=== PATIENT | female | born 1960 | race Caucasian/White ===

== ENCOUNTER 2024-01-23 08:59 | Outpatient (AMB) | payer OTHER, SELFPAY ==
--- NOTE | 2024-01-23 09:11 | A.OFFPC_ITS ---
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 Past medical history includes type 2 diabetes hyperlipidemia and hypertension. Patient had last visit was a previous doctor in June. She has not been checking her blood glucose readings at home. Patient denies hypoglycemia episodes PFSH Surgical History Hx of tubal ligation History of left oophorectomy Hx of appendectomy Family History Father Hypertension Mother Dementia Sister COPD (chronic obstructive pulmonary disease) Social History (Updated 01/23/24 @ 10:11 by Shakira Duarte MD) Household Members Other:: , retired, 2 sons, Housing: House Patient Tobacco Use Status: Never used Tobacco e-Cigarette/Vaping Use: Never Used Current occupational status: retired Cognitive needs: No Hearing needs: No Vision needs: Yes Questionnaire PHQ-9 Over the last 2 weeks, how often have you been bothered by any of the following problems? 1. Little interest or pleasure in doing things: not at all 2. Feeling down, depressed, or hopeless: not at all 3. Trouble falling or staying asleep, or sleeping too much: several days 4. Feeling tired or having little energy: several days 5. Poor appetite or overeating: several days 6. Feeling bad about yourself - or that you are a failure or have let yourself or your family down: not at all 7. Trouble concentrating on things, such as reading the newspaper or watching television: not at all 8. Moving or speaking so slowly that other people could have noticed. Or the opposite - being so fidgety or restless that you have been moving around a lot more than usual: not at all 9. Thoughts that you would be better off or of hurting yourself in some way: not at all Total score: 3 Depression Screening Interpretation: Negative Depression Screening Done: Yes Source: Developed by Drs. Jasson Peterson, Joan Daugherty, Agustín Acosta and colleagues, with an educational matt from [employer]. Thrive Questionnaire Date Thrive assessed: 01/23/24 I am a: Patient What is your living situation today?: I have a steady place to live Within the past 12 months, did the food you bought not last and you didn't have the money to get more?: Never true Within the past 12 months, did you worry whether your food would run out before you got money to buy more?: Never true Do you have trouble paying for medicines?: No Do you have trouble getting transportation to medical appointments?: No Do you have trouble paying your heating and electricity bill?: No Do you have trouble taking care of your child, family member or friend?: No Do you have trouble with day-to-day activities such as bathing, preparing meals, shopping, managing finances, etc.?: No Are you currently unemployed and looking for a job?: No Are you interested in more education?: No Please select the resources that you would like help with: None Currently or been in a relationship where the following occur: no concerns reported THRIVE Score: 0 AUDIT C Alcohol Use Questionnaire (AUDIT-C) 1. How often do you have a drink containing alcohol?: Monthly or less 2. How many drinks containing alcohol do you have on a typical day when you are drinking?: 1 or 2 3. How often do you have six or more drinks on one occasion?: Never Total Score: 1 SO-7 AMB Questionnaire SO-7 Date SO - 7 assessed: 01/23/24 Feeling nervous, anxious, or on edge: 0 = Not at all Not being able to stop or control worryin = Not at all Worrying too much about different things: 0 = Not at all Trouble relaxin = Not at all Being so restless that it is hard to sit still: 0 = Not at all Becoming easily annoyed or irritable: 0 = Not at all Feeling afraid as if something awful might happen: 0 = Not at all Total SO-7 score (0-4 normal; 5-9 mild; 10-14 moderate; 15-21 severe): 0 Source: Developed by Drs. Jasson Peterson, Joan Daugherty, Agustín Acosta and colleagues, with an educational matt from [employer]. Review of Systems Const All systems reviewed & are unremarkable except as noted in HPI and below Reports no additional complaints Eyes Reports no additional complaints ENT Reports no additional complaints Card Reports no additional complaints Resp Reports no additional complaints GI Reports no additional complaints Reports no additional complaints Physical exam (Primary Care) Vital Signs: Last Vital Signs Pulse 100 01/23/24 09:12 BP 130/76 01/23/24 09:12 Pulse Ox 97 01/23/24 09:12 Oxygen Delivery Method Room Air 01/23/24 09:12 BMI result Body Mass Index 29.3 Tobacco/Smoking Status: Tobacco use Status Tobacco use date assessed 01/23/24 01/23/24 09:28 Patient Tobacco Use Status Never used Tobacco 01/23/24 10:11 e-Cigarette/Vaping Use Never Used 01/23/24 10:11 PHQ-9: PHQ-9 Score PHQ-9: Total score 3 01/23/24 09:48 Depression Screening Interpretation: Negative Thrive Assessment: Date of Thrive Assessment Date Thrive assessed 01/23/24 01/23/24 09:28 Currently or been in a relationship where the following occur: no concerns reported Const General: no acute distress HENMT Head: Yes normal to inspection Ears: hearing grossly normal bilaterally Throat: Yes posterior oropharynx normal Eyes General: appearance normal, both eyes and all related structures Neck Neck: Yes supple Resp Effort & Inspection: normal respiratory effort Auscultation: clear to auscultation bilaterally Cardio Rhythm: regular rhythm Heart sounds: S1 normal heart sound present and S2 normal heart sound present GI Inspection: Yes normal to inspection Palpation (GI): Soft to palpation Percussion: Yes normal to percussion Auscultation: normal bowel sounds Extrem Other: Diabetic foot exam skin is intact monofilament and vibration sensation intact bilaterally General: Yes no clubbing, cyanosis or edema Assessment and Plan Assessment & Plan (1) DM type 2 (diabetes mellitus, type 2): Comment: X 12 yrs Code(s): E11.9 - Type 2 diabetes mellitus without complications Plan: ADA diet regular physical activity discussed with the patient. Patient will start Mounjaro because Ozempic is not covered by her current insurance. She will return for fasting labs including A1c next week and in 3 months (2) Hyperlipidemia: Code(s): E78.5 - Hyperlipidemia, unspecified Plan: Continue statin (3) HTN (hypertension): Code(s): I10 - Essential (primary) hypertension Plan: Continue Lisinopril (4) Hx of colonoscopy: Comment: negative >10 yrs Code(s): Z98.890 - Other specified postprocedural states Plan: Referred to GI for colonoscopy (5) Hx of mammogram: Comment: [facility] 2022 Code(s): Z92.89 - Personal history of other medical treatment Plan: Obtain records from [facility] (6) Normal pelvic exam: Comment: >10 yrs, declined 01/19 Code(s): Z01.419 - Encounter for gynecological examination (general) (routine) without abnormal findings Orders: Orders Comprehensive [place]. Panel Fast Today E11.9 - Type 2 diabetes mellitus without complications, E78.5 - Hyperlipidemia, unspecified, I10 - Essential (primary) h ypertension, Z01.419 - Encounter for gynecological examination (general) (routine) without abnormal findings, Z92.89 - Personal history of other medical treatment, Z98.890 - Other specified postprocedural states TSH reflex Free T4 Today E11.9 - Type 2 diabetes mellitus without complications, E78.5 - Hyperlipidemia, unspecified, I10 - Essential (primary) hypertension, Z01 .419 - Encounter for gynecological examination (general) (routine) without abnormal findings, Z92.89 - Personal history of other medical treatment, Z98.890 - Other specified postprocedural states Comprehensive [place]. Panel Fast 3 Months E11.9 - Type 2 diabetes mellitus without complications, E78.5 - Hyperlipidemia, unspecified, I10 - Essential (primary) hypertension Microalbumin, Random (w Creat) 3 Months E11.9 - Type 2 diabetes mellitus without complications, E78.5 - Hyperlipidemia, unspecified, I10 - Essential (primary) hypertension Complete Blood Count Auto Diff Today E11.9 - Type 2 diabetes mellitus without complications, E78.5 - Hyperlipidemia, unspecified, I10 - Essential (primary) hypertension, Z01.419 - Encounter for gynecological examination (general) (routine) without abnormal findings, Z92.89 - Personal history of other medical treatment, Z98.890 - Other specified postprocedural states Lipid Panel Today E11.9 - Type 2 diabetes mellitus without complications, E78.5 - Hyperlipidemia, unspecified, I10 - Essential (primary) hypertension, Z01.419 - Encounter for gynecological examination (general) (routine) without abnormal findings, Z92.89 - Personal history of other medical treatment, Z98.890 - Other specified postprocedural states Hemoglobin A1c Today E11.9 - Type 2 diabetes mellitus without complications, E78.5 - Hyperlipidemia, unspecified, I10 - Essential (primary) hypertension, Z01.419 - Encounter for gynecological examination (general) (routine) without abnormal findings, Z92.89 - Personal history of other medical treatment, Z98.890 - Other specified postprocedural states Microalbumin, Random (w Creat) Today E11.9 - Type 2 diabetes mellitus without complications, E78.5 - Hyperlipidemia, unspecified, I10 - Essential (primary) hypertension, Z01.419 - Encounter for gynecological examination (general) (routine) without abnormal findings, Z92.89 - Personal history of other medical treatment, Z98.890 - Other specified postprocedural states Hemoglobin A1c 3 Months E11.9 - Type 2 diabetes mellitus without complications, E78.5 - Hyperlipidemia, unspecified, I10 - Essential (primary) hypertension Lipid Panel 3 Months E11.9 - Type 2 diabetes mellitus without complications, E78.5 - Hyperlipidemia, unspecified, I10 - Essential (primary) hypertension Referrals Gastroenterology Referral Z00.00 - Encounter for general adult medical examination without abnormal findings Medications: New tirzepatide (Mounjaro) 2.5 mg (0.5 mL) subcut QWEEK 6 mL 0RF 4 weeks metformin 1,000 mg PO DAILY 90 tabs 3RF lisinopril 20 mg PO DAILY 90 tabs 3RF pravastatin 40 mg PO BEDTIME 90 tabs 3RF Coding Level of Care Code New Pt Level 4 (74770) Diagnoses DM type 2 (diabetes mellitus, type 2) E11.9 Hyperlipidemia E78.5 HTN (hypertension) I10 Hx of colonoscopy Z98.890 Hx of mammogram Z92.89 Normal pelvic exam Z01.419
[2024-01-23 09:12] VITALS: BP 130/76; PULSE 100; O2SAT 97; BMI 29.3
== END 2024-01-23 10:15 | disposition home or self-care (01) ==
PROVIDERS: PCP Internal Medicine; Visit Provider Internal Medicine
DX: E11.9 Type 2 diabetes mellitus without complications (principal); E78.5 Hyperlipidemia, unspecified; I10 Essential (primary) hypertension; Z98.890 Other specified postprocedural states; Z92.89 Personal history of other medical treatment; Z01.419 Encounter for gynecological examination (general) (routine) without abnormal findings
CPT/HCPCS: 99204

== ENCOUNTER 2024-02-05 09:58 | Outpatient (REF) | payer OTHER, SELFPAY ==
[2024-02-05 13:20] LABS: MANUAL DIFF FLAG NO
[2024-02-05 13:30] LABS: Basophils Percent Auto 0.5 % (0-2); Eosinophils Percent Auto 0.7 % (0-4); Hematocrit 38.8 % (37.0-47.0); Hemoglobin 13.1 g/dl (12.0-16.0); Imm Gran Abs Auto 0.01 X10*3/uL (0.00-0.03); Imm Gran Pct Auto 0.2 % (0.0-0.4); Lymphocytes Absolute Auto 1.1 X10*3/uL (1.2-4.9); Lymphocytes Percent Auto 20.1 % (20-40); Mean Corpuscular HGB Conc 33.8 g/dl (31.0-35.0); Mean Corpuscular Hemoglobin 31.2 pg (27.0-33.0); Mean Corpuscular Volume 92.4 fL (80.0-98.0); Mean Platelet Volume 9.6 fL (9.4-12.3); Monocytes Absolute Auto 0.4 X10*3/uL (0.1-1.2); Monocytes Percent Auto 6.4 % (2-11); Neutrophils Absolute Auto 4.1 x10*3/uL (2.0-8.3); Neutrophils Percent Auto 72.1 % (45-73); Platelet Count 268 X10*3/uL (160-400); Red Cell Distribution Width 12.3 % (11.0-16.0); White Blood Count 5.6 X10*3/uL (4.8-10.8)
[2024-02-05 13:48] LABS: Alanine Aminotransferase 70 U/L (0-31); Albumin Level 4.2 g/dL (3.5-5.0); Alkaline Phosphatase 90 U/L (39-117); Anion Gap 11 (12-20); Aspartate Amino Transferase 53 U/L (5-31); Bilirubin Total 0.6 mg/dL (0.0-1.0); Blood Urea Nitrogen 17 mg/dL (9-16); Calcium 9.6 mg/dL (8.4-10.2); Carbon Dioxide 26 mmol/L (22-29); Chloride 105 mmol/L (96-108); Cholesterol 163 mg/dL (<200); Estimated Glomerular Filt Rate > 60; Glucose Fasting 164 mg/dL (60-99); HDL Cholesterol 50 mg/dL (>40); LDL Cholesterol Calculated 91 mg/dL (<100); Sodium 137 mmol/L (135-145); Total Protein 7.3 g/dL (6.5-8.0); Triglycerides 111 mg/dL (<150)
[2024-02-05 14:07] LABS: TSH reflex Free T4 0.59 uIU/mL (0.32-4.0)
[2024-02-05 14:10] LABS: Estimated Average Glucose 143 mg/dL; Hemoglobin A1c % 6.6 % (<6.0)
[2024-02-05 14:17] LABS: Creatinine Urine 187.02 mg/dL; Microalbum/Creatinine Ratio Ur 6.4 ug/mg cr (<30)
== END 2024-02-05 09:59 | disposition home or self-care (01) ==
LOC: HO.HMGCLDS 09:58
PROVIDERS: PCP Internal Medicine; Visit Provider Internal Medicine
DX: E11.9 Type 2 diabetes mellitus without complications (principal); I10 Essential (primary) hypertension; E78.5 Hyperlipidemia, unspecified; Z98.890 Other specified postprocedural states; Z92.89 Personal history of other medical treatment
CPT/HCPCS: 36415; 80053; 80061; 82043; 82570; 83036; 84443; 85025

== ENCOUNTER 2024-03-25 13:52 | Outpatient (AMB) | payer OTHER, SELFPAY ==
--- NOTE | 2024-03-25 13:59 | MHC.OFFVIS ---
Vital Signs 03/25/24 14:09 Height 5 ft 6.75 in Weight 185 lb 10.067 oz BMI 29.3 BP 122/62 Blood Pressure Location Lt brachial Position Sitting Pulse 75 Intake Visit Reasons: Colonoscopy Screening Intake Note: Jasmyne presents to in office visit today for colonoscopy screening. CC: Patient denies having any GI symptoms today. Last colonoscopy about 11 years ago at [facility] per patient it was normal. 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 She is referred by Shakira Duarte of [facility] primary care. PMX Hypertension High cholesterol Diabetes * SURGICAL HISTORY Colonoscopy-10 years ago Tubal ligation Left oophorectomy Appendectomy * ALLERGIES: NKDA * Violin Memory LABS: Laboratory Tests 02/05/24 10:02 WBC 5.6 Hgb 13.1 Hct 38.8 Plt Count 268 Estimated GFR > 60 Total Bilirubin 0.6 AST 53 H ALT 70 H Alkaline Phosphatase 90 TSH 0.59 TODAY'S VISIT This is her second colonoscopy. This was a negative study. No bowel or upper GI problems. No prior anesthesia or sedation problems. No respiratory or cardiac problems. No ID problems. Her sister had some colon polyps removed. [facility] Surgical History Hx of tubal ligation History of left oophorectomy Hx of appendectomy Family History Father Hypertension Mother Dementia Sister COPD (chronic obstructive pulmonary disease) Maternal Grandmother Breast cancer Social History Household Members Other:: , retired, 2 sons, Housing: House Patient Tobacco Use Status: Never used Tobacco e-Cigarette/Vaping Use: Never Used Current occupational status: retired Cognitive needs: No Hearing needs: No Vision needs: Yes Review of Systems Const Denies fatigue, Denies fever(s), Denies night sweats, Denies poor appetite and Denies weight loss Eyes Details: glasses Reports requires corrective lenses ENT Reports Normal hearing present, Denies dental pain, Denies dysphagia, Denies hearing loss, Denies mouth pain, Denies odynophagia, Denies throat swelling, Denies tongue swelling and Reports other (Dentition adequate) Card Reports no additional complaints Resp Reports no additional complaints GI Details: Denies abdominal pain, Denies melena, Denies bloating, Denies hematochezia, Denies constipation, Denies GI cramping, Denies dysphagia, Denies excessive flatus, Denies early satiety, Denies heartburn, Denies diarrhea, Denies nausea, Denies odynophagia, Denies vomiting and Denies hematemesis Skin/Breast Denies pruritus, Denies lesions, Denies rash and Denies jaundice Neuro Reports Normal hearing present and Denies Abnormal speech present Endo Denies fatigue Aller/Immun Denies throat swelling and Denies tongue swelling Physical Exam Vital Signs: Last Vital Signs Pulse 75 03/25/24 14:09 BP 122/62 03/25/24 14:09 BMI result Body Mass Index 29.3 Const General: cooperative, no acute distress, well developed and well groomed Nutritional Appearance: well nourished and overweight Orientation/consciousness: oriented to person, oriented to place and oriented to time Limitations: No language barrier HEENT Head: Yes normocephalic and Yes atraumatic Eyes General: appearance normal, both eyes and all related structures Pupils: Equal, round and reactive pupils present Neck Neck: Yes normal visual inspection and Yes no lymphadenopathy Thyroid: Thyroid normal Resp Effort & Inspection: normal respiratory effort and able to speak in complete sentences Auscultation: clear to auscultation bilaterally Cardio Rate: regular rate Rhythm: regular rhythm Heart sounds: Normal, physiologic split S2 sound present Peripheral pulses: radial pulses present and posterior tibial pulses present GI Inspection: No distended, Yes Abdominal panniculus present, Yes obesity, Yes scar and Yes striae Palpation (GI): Soft to palpation, nontender, no guarding, not rigid and No hepatosplenomegaly present Percussion: Yes normal to percussion Auscultation: normal bowel sounds Rectal Exam - Female: deferred Abdomen image: 1. surgical scar Skin General skin exam: no rashes or lesions noted, turgor normal, skin not dry, no jaundice, No spider nevi and no striae Rashes: no rashes Nails: normal Neuro General: oriented to person, oriented to place and oriented to time Cranial nerves: Yes Equal, round and reactive pupils present and Yes Normal hearing present Speech: No Abnormal speech present Extrem General: Yes normal to inspection, No clubbing, No cyanosis and No edema Psych Appearance: grossly normal and well kempt Mental Status: mental status grossly normal Speech and movement: Normal speech and movement present Affect: normal affect Attitude: cooperative Thought process: Normal thought process present and not confabulating Thought content: Normal thought content present Insight: Fair insight present (Psych) Judgement: Fair judgement present (Psych) Results Reviewed Results Reviewed: Laboratory Tests 02/05/24 10:02 WBC 5.6 Hgb 13.1 Hct 38.8 Plt Count 268 Estimated GFR > 60 Total Bilirubin 0.6 AST 53 H ALT 70 H Alkaline Phosphatase 90 TSH 0.59 Assessment & Plan Assessment & Plan (1) Pre-op examination: Code(s): Z01.818 - Encounter for other preprocedural examination Category: Medical (2) Family history of polyps in the colon: Comment: Sister Code(s): Z83.719 - Family history of colon polyps, unspecified Category: Medical Plan This is her second colonoscopy. This was a negative study. No bowel or upper GI problems. No prior anesthesia or sedation problems. No respiratory or cardiac problems. No ID problems. Her sister had some colon polyps removed. Orders: Orders Colonoscopy - GI Use Only Today Z01.818 - Encounter for other preprocedural examination Medications: New sod sulf-pot chloride-mag sulf 1.479-0.188- 0.225 gram (Sutab) PO PER PKG DIR for colonoscopy prep 24 tabs 0RF Coding Level of Care Code New Pt Level 3 (68423) Diagnoses Pre-op examination Z01.818 Family history of polyps in the colon Z83.719
[2024-03-25 14:09] VITALS: BP 122/62; PULSE 75; BMI 29.3
== END 2024-03-25 14:34 | disposition home or self-care (01) ==
PROVIDERS: PCP Internal Medicine; Visit Provider Nurse Practitioner
DX: Z01.818 Encounter for other preprocedural examination (principal); Z12.11 Encounter for screening for malignant neoplasm of colon; Z83.719 Family history of colon polyps, unspecified
CPT/HCPCS: S0285

== ENCOUNTER → 2024-03-25 13:52 | Outpatient (BNVA) | payer OTHER, SELFPAY | PROVIDERS: PCP Internal Medicine; Visit Provider Nurse Practitioner ==

== ENCOUNTER 2024-04-15 11:00 | Outpatient (AMB) | payer OTHER, SELFPAY ==
--- NOTE | 2024-04-15 11:14 | MHC.PC.OV ---
Vital Signs 04/15/24 11:19 Height 5 ft 6.75 in Weight 183 lb BMI 28.9 BP 118/66 Blood Pressure Location Lt brachial Position Sitting Pulse 59 Pulse Source Pulse Oximeter Pulse Oximetry (%) 98 Oxygen Delivery Method Room Air Intake Visit Reasons: 3 month follow up Intake Note: Pt is here today for 3 months follow up visit. Allergies No Known Allergies Allergy (Verified 04/15/24 11:21) Medication List - Last Reconciled 04/15/24 by Shakira Duarte MD lisinopril 20 mg PO DAILY metformin 1,000 mg PO DAILY pravastatin 40 mg PO BEDTIME semaglutide (Ozempic) 0.5 mg (0.736 mL) subcut QWEEK sod sulf-pot chloride-mag sulf 1.479-0.188- 0.225 gram (Sutab) PO PER PKG DIR for colonoscopy prep Tobacco use date assessed: 01/23/24 Dental Screening Dental Screen Date: 01/23/24 HPI 3 month follow up HPI Details PATIENT PRESENTS FOR THE FOLLOW-UP ON HYPERTENSION HYPERLIPIDEMIA TYPE 2 DIABETES. Patient has been taking Ozempic but not regularly because of the shortage. She denies side effects then has not been checking her blood glucose. She complains of chronic left knee pain worse after walking longer distance or at rest for the last 3 months. She denies any injury or joint swelling [facility] Surgical History Hx of tubal ligation History of left oophorectomy Hx of appendectomy Family History Father Hypertension Mother Dementia Sister COPD (chronic obstructive pulmonary disease) Maternal Grandmother Breast cancer Social History Household Members Other:: , retired, 2 sons, Housing: House Patient Tobacco Use Status: Never used Tobacco e-Cigarette/Vaping Use: Never Used service: No Current occupational status: retired Cognitive needs: No Hearing needs: No Vision needs: Yes Questionnaire PHQ-9 Over the last 2 weeks, how often have you been bothered by any of the following problems? 5. Poor appetite or overeating: nearly every day Source: Developed by Drs. Jasson Peterson, Joan Daugherty, Agustín Acosta and colleagues, with an educational matt from [employer]. Thrive Questionnaire Date Thrive assessed: 01/23/24 SO-7 AMB Questionnaire SO-7 Date SO - 7 assessed: 01/23/24 Source: Developed by Drs. Jasson Peterson, Joan Daugherty, Agustín Acosta and colleagues, with an educational matt from [employer]. Review of Systems Const All systems reviewed & are unremarkable except as noted in HPI and below ENT Reports no additional complaints Card Reports no additional complaints Resp Reports no additional complaints GI Reports no additional complaints Reports no additional complaints Physical exam (Primary Care) Vital Signs: Last Vital Signs Pulse 59 04/15/24 11:19 BP 118/66 04/15/24 11:19 Pulse Ox 98 04/15/24 11:19 Oxygen Delivery Method Room Air 04/15/24 11:19 BMI result Body Mass Index 28.9 Tobacco/Smoking Status: Tobacco use Status Tobacco use date assessed 01/23/24 04/15/24 11:15 Patient Tobacco Use Status Never used Tobacco 04/15/24 11:15 e-Cigarette/Vaping Use Never Used 04/15/24 11:15 Thrive Assessment: Date of Thrive Assessment Date Thrive assessed 01/23/24 04/15/24 11:15 Const General: no acute distress HENMT Head: Yes normal to inspection Neck Neck: Yes supple Resp Effort & Inspection: normal respiratory effort Auscultation: clear to auscultation bilaterally Cardio Rhythm: regular rhythm Heart sounds: S1 normal heart sound present and S2 normal heart sound present GI Auscultation: normal bowel sounds Extrem Other: There is decreased range of motion and crepitus of both knees left more than right, no soft tissue swelling erythema or warmth General: Yes no clubbing, cyanosis or edema Assessment and Plan Assessment & Plan (1) Knee pain, left: Code(s): M25.562 - Pain in left knee Plan: Check x-ray, PT was recommended but patient declined, she will start exercising on her elliptical (2) Hyperlipidemia: Code(s): E78.5 - Hyperlipidemia, unspecified Plan: Continue statin (3) HTN (hypertension): Code(s): I10 - Essential (primary) hypertension Plan: Continue Lisinopril (4) DM type 2 (diabetes mellitus, type 2): Comment: X 12 yrs Code(s): E11.9 - Type 2 diabetes mellitus without complications Plan: A1c was 6.6, ADA diet regular physical activity weight loss discussed with the patient she will continue Ozempic 0.5 mg for 3 months and follow-up with a fasting labs Orders: Orders Hepatitis A,B,C Profile 3 Months E11.9 - Type 2 diabetes mellitus without complications, E78.5 - Hyperlipidemia, unspecified, I10 - Essential (primary) hypertension XR knee LT 2V Today M25.562 - Pain in left knee Hemoglobin A1c 3 Months E11.9 - Type 2 diabetes mellitus without complications, E78.5 - Hyperlipidemia, unspecified, I10 - Essential (primary) hypertension Liver Panel 3 Months E11.9 - Type 2 diabetes mellitus without complications, E78.5 - Hyperlipidemia, unspecified, I10 - Essential (primary) hypertension Medications: Refilled semaglutide (Ozempic) 0.5 mg (0.736 mL) subcut QWEEK 9 mL 0RF semaglutide (Ozempic) 0.5 mg (0.736 mL) subcut QWEEK 9 mL 3RF Coding Level of Care Code Est Pt Level 4 (55131) Diagnoses Knee pain, left M25.562 Hyperlipidemia E78.5 HTN (hypertension) I10 DM type 2 (diabetes mellitus, type 2) E11.9
[2024-04-15 11:19] VITALS: BP 118/66; PULSE 59; O2SAT 98; BMI 28.9
== END 2024-04-15 12:27 | disposition home or self-care (01) ==
PROVIDERS: PCP Internal Medicine; Visit Provider Internal Medicine
DX: M25.562 Pain in left knee (principal); E78.5 Hyperlipidemia, unspecified; I10 Essential (primary) hypertension; E11.9 Type 2 diabetes mellitus without complications
CPT/HCPCS: 99214

== ENCOUNTER 2024-04-17 09:25 | Outpatient (REF) | payer OTHER, SELFPAY ==
--- NOTE | ~2024-04-17 | XR_ITS ---
EXAMINATION: XR KNEE, LEFT CLINICAL INFORMATION: Pain COMPARISON: None available. TECHNIQUE: AP and lateral views of the left knee. FINDINGS: No acute visible fracture or dislocation. Multicompartment arthritic changes. Potential loose body in the suprapatellar region. Joint space alignment otherwise maintained. Small knee joint effusion. Soft tissues are unremarkable. XR/XR knee LT 2V IMPRESSION: 1. No acute visible fracture or dislocation. 2. Multicompartment arthritic changes. 3. Potential loose body in the suprapatellar region. 4. Small knee joint effusion.
== END 2024-04-17 09:26 | disposition home or self-care (01) ==
LOC: HO.HMGCX 09:25
PROVIDERS: PCP Internal Medicine; Visit Provider Internal Medicine
DX: M25.562 Pain in left knee (principal)
CPT/HCPCS: 73560

== ENCOUNTER 2024-12-19 10:31 | Outpatient (REF) | payer OTHER, SELFPAY ==
--- NOTE | ~2024-12-19 | XR_ITS ---
EXAMINATION: XR KNEE 3 VIEWS LEFT, XR KNEES ANTEROPOSTERIOR STANDING BILATERAL HISTORY: M25.562 - Pain in left knee COMPARISON: Comparison is made with the prior examination dated 04/17/2024. FINDINGS: Standing AP views of the bilateral knees and 3 additional views of the left knee are submitted. Osseous mineralization is normal. There is no fracture or dislocation. There is moderate osteoarthritis of the medial and patellofemoral compartments with joint space narrowing and osteophyte formation. There is moderate narrowing of the medial compartment of the right knee. The soft tissues are unremarkable. There is no joint effusion. XR/XR knee LT 3V IMPRESSION: Moderate osteoarthritis of the medial and patellofemoral compartments. Electronically signed by: Jasson Ferraro MD 12/23/2024 08:38 AM [facility]
--- NOTE | ~2024-12-19 | XR_ITS ---
EXAMINATION: XR KNEE 3 VIEWS LEFT, XR KNEES ANTEROPOSTERIOR STANDING BILATERAL HISTORY: M25.562 - Pain in left knee COMPARISON: Comparison is made with the prior examination dated 04/17/2024. FINDINGS: Standing AP views of the bilateral knees and 3 additional views of the left knee are submitted. Osseous mineralization is normal. There is no fracture or dislocation. There is moderate osteoarthritis of the medial and patellofemoral compartments with joint space narrowing and osteophyte formation. There is moderate narrowing of the medial compartment of the right knee. The soft tissues are unremarkable. There is no joint effusion. XR/XR knee standing BI IMPRESSION: Moderate osteoarthritis of the medial and patellofemoral compartments. Electronically signed by: Jasson Ferraro MD 12/23/2024 08:38 AM GABRIEL
== END 2024-12-19 10:32 | disposition home or self-care (01) ==
LOC: HO.HMGCX 10:31
PROVIDERS: PCP Internal Medicine; Visit Provider Internal Medicine
DX: M25.562 Pain in left knee (principal); I10 Essential (primary) hypertension; E11.9 Type 2 diabetes mellitus without complications; Z79.899 Other long term (current) drug therapy
CPT/HCPCS: 73562; 73565; 96127

== ENCOUNTER → 2024-12-19 11:45 | Outpatient (BNV) | payer OTHER, SELFPAY | PROVIDERS: PCP Internal Medicine; Visit Provider Radiology Diagnostic Radiology | DX: M17.12 Unilateral primary osteoarthritis, left knee (principal) | CPT/HCPCS: 73564 ==

== ENCOUNTER 2025-01-20 08:06 | Outpatient (REF) | payer OTHER, SELFPAY ==
--- OUTSIDE RECORDS SUMMARY | 2025-01-20 08:16 | XMS_ITS | Patient Health Record ---
Author Organization [facility] Address [address] [address] Support Name Relationship Address Phone IAN CARRIE Guarantor Unknown [phone] Reason For Referral No Information Medications Medication SIG (Take, Route, Frequency, Duration) Notes Start Date End Date Status Calcium-Carb 600 + D 1 ORAL daily for -3 [facility] 2 Active Lisinopril 20MG 1 ORAL daily for -3 [facility] 10/28/2012 Active metFORMIN HCl 1GM 1 ORAL daily for -3 [facility] 10/28/2012 Active Multivitamins 1 ORAL daily for -3 [facility] 10/28/2012 Active Pravastatin Sodium 10MG 1 ORAL daily for -3 [facility] 2011 Active Problems Problem Type SNOMED Code ICD Code Onset Dates Problem Status W/U Status Risk Notes Problem Type II diabetes mellitus without complication (232342119) Diabetes mellitus without mention of complication, type II or unspecified type, not stated as uncontrolled (250.00) Active confirmed Major Problem Hyperlipidemia (79902331) Other and unspecified hyperlipidemia (272.4) Active confirmed Major Problem Obesity (195176051) Obesity, unspecified (278.00) Active confirmed Major Problem Gynecological examination normal (787371663929345) Routine gynecological examination (V72.31) Active confirmed Diag Plan Of Treatment No Information Insurance Providers Payer Name Payer Address Payer Phone Subscriber Number Group Number Insured Name Patient Relationship to Insured Coverage Start Date Coverage End Date CIGNA [address] [place], [place] [id number] CARRIE SOSA Self - patient is the insured
--- OUTSIDE RECORDS SUMMARY | 2025-01-20 08:16 | XMS_ITS | Clinical Summary ---
Author Organization [employer] Address [address] [place] [address] Care Team Providers Care Obstetrical Anesthesiologist Name Role Phone Natalie Hayes MD Primary Care Provider Unava ilable Allergies No known active allergies Medications metFORMIN (GLUCOPHAGE) 1,000 mg tablet Take 1,000 mg by mouth 2 (two) times a day with meals. Active pravastatin (PRAVACHOL) 40 mg tablet Take 40 mg by mouth every night. Active lisinopriL (PRINIVIL) 20 mg tablet Take 20 mg by mouth 1 (one) time each day. Active turmeric root extract 500 mg capsule Take 500 mg by mouth 1 (one) time each day. Active cyanocobalamin (VITAMIN B-12) 1,000 mcg tablet Take 100 mcg by mouth 1 (one) time each day. Active Immunizations Name Administration Dates Next Due Influenza, Quad Single Dose PF 0.5mL 6+Mo 2019 Td, 2 Lf, Preservative Free, adsorbed 03/18/2021 Family History Medical History Relation Comments Breast cancer Maternal Grandmother Dementia Mother Heart disease Sister Hypertension Sister Relation Status Comments Father Alive Maternal Grandmother Mother Sister Social History Tobacco Use Types Packs/Day Years Used Date Smoking Tobacco: Never Smokeless Tobacco: Never Alcohol Use Standard Drinks/Week Comments Yes 0 (1 standard drink = 0.6 oz pur e alcohol) AUDIT-C Answer Date Recorded Q1: How often do you have a drink containing alc ohol? Monthly or less 11/15/2020 Q2: How many drinks containi ng alcohol do you have on a typical day when you are drinking? 1 or 2 11/15/2020 Frequency of Binge Drinking Not on file 10/27 Comments Unknown Sex and Gender Information Value Date Recorded Sex Assigned at Not on file Legal Sex Female 6:11 AM MST Gender Identity Not on file Sexual Orientation Not on file Last Filed Vital Signs Vital Sign Reading Time Taken Comments Blood Pressure - - Pulse 72 11/15/2020 12:27 PM EST Temperature 36.5 ??C (97.7 ??F) 11/15/2020 10:[address] Respiratory Rate - - Oxygen Saturation 97% 11/15/2020 10:46 AM EST Inhaled Oxygen Concentration - - Weight 86.2 kg (190 lb) 11/15/2020 10:46 AM EST Height 169.5 cm (5' 6.75 ) 11/15/2020 10:[address] Body Mass Index 29.98 11/15/2020 10:46 AM EST Plan of Treatment Health Maintenance Due Date Last Done Comments CT Colonography 1960 Cologuard 1960 FOBT/FIT 1960 Hepatitis C Screening 1960 Sigmoidoscopy 1960 PHQ-9 Depression Screen 1972 Complete Annual HRA 1978 SO-7 Anxiety Screen 1978 Pneumococcal Vaccine: 50+ Ye ars (1 of 1 - PCV) 2010 Zoster Vaccines (1 of 2) 2010 DTaP,Tdap,and Td Vaccines (1 - Tdap) 03/19/2021 03/18/2021 Annual Preventive Exam 10/27/2021 0, 10/27/2020, 10/20/2019, Additional history exists Mammogram 10/11/2022 10/11/2020, 09/29/2020 COVID-19 Vaccine (1 - 2023-2 5 season) 2024 Influenza Vaccine (#1) 2024 09/13/2020 Cervical Cancer Screening (Pap/HPV) 11/15/2025 11/15/2020 Colonoscopy 11/15/2030 11/15/2020 Colorectal Cancer Screening 11/15/2030 RSV Vaccine (SCDM) (1 - 1-do se 75+ series) 2035 Procedures Procedure Name Priority Date/Time Associated Diagnosis Comments PAP SMEAR Routine 11/15/2020 COLONOSCOPY Routine 11/15/2020 MAMMOGRAPHY Routine 10/11/2020 from Last 3 Months or Most Recently Relevant to Health Maintenance Results * Colonoscopy (11/15/2020) Colonoscopy normal Comment:age 51 Historical Provider HEALTH MAINTENANCE Final Result * Pap Smear (11/15/2020) Pap smear normal Comment:6 or 7 years ago Historical Provider HEALTH MAINTENANCE Final Result * Mammography (10/11/2020) Mammogram normal Anatomical Region Laterality Modality Other [facility] Provider HEALTH MAINTENANCE Final Result from Last 3 Months or Most Recently Relevant to Health Maintenance Insurance [facility] Care Teams Obstetrical Anesthesiologist Relationship Specialty Start Date End Date Natalie Hayes MD PCP - General Internal Medicine 11/15/20
[2025-01-20 11:30] LABS: MANUAL DIFF FLAG NO
[2025-01-20 11:36] LABS: Basophils Percent Auto 0.8 % (0-2); Eosinophils Absolute Auto 0.1 X10*3/uL (0.0-0.4); Eosinophils Percent Auto 1.9 % (0-4); Hematocrit 38.5 % (37.0-47.0); Hemoglobin 12.9 g/dl (12.0-16.0); Imm Gran Abs Auto 0.01 X10*3/uL (0.00-0.03); Imm Gran Pct Auto 0.3 % (0.0-0.4); Lymphocytes Absolute Auto 0.8 X10*3/uL (1.2-4.9); Lymphocytes Percent Auto 22.4 % (20-40); Mean Corpuscular HGB Conc 33.5 g/dl (31.0-35.0); Mean Corpuscular Hemoglobin 31.8 pg (27.0-33.0); Mean Corpuscular Volume 94.8 fL (80.0-98.0); Mean Platelet Volume 9.8 fL (9.4-12.3); Monocytes Absolute Auto 0.3 X10*3/uL (0.1-1.2); Monocytes Percent Auto 9.1 % (2-11); Neutrophils Absolute Auto 2.5 x10*3/uL (2.0-8.3); Neutrophils Percent Auto 65.5 % (45-73); Platelet Count 226 X10*3/uL (160-400); Red Blood Count 4.06 X10*6/uL (4.20-5.50); Red Cell Distribution Width 12.4 % (11.0-16.0); White Blood Count 3.8 X10*3/uL (4.8-10.8)
[2025-01-20 12:04] LABS: Estimated Average Glucose 131 mg/dL; Hemoglobin A1C 152.3083 umol/L; Hemoglobin A1c % 6.2 % (<6.0)
[2025-01-20 12:21] LABS: Alanine Aminotransferase 24 U/L (0-31); Albumin Level 4.2 g/dL (3.5-5.0); Alkaline Phosphatase 84 U/L (39-117); Anion Gap 11 (12-20); Aspartate Amino Transferase 25 U/L (5-31); Bilirubin Total 0.7 mg/dL (0.0-1.0); Blood Urea Nitrogen 20 mg/dL (9-16); Calcium 9.6 mg/dL (8.4-10.2); Carbon Dioxide 24 mmol/L (22-29); Chloride 108 mmol/L (96-108); Cholesterol 137 mg/dL (<200); Estimated Glomerular Filt Rate > 60; Glucose Fasting 147 mg/dL (60-99); HDL Cholesterol 48 mg/dL (>40); LDL Cholesterol Calculated 76 mg/dL (<100); Potassium 4.3 mmol/L (3.3-5.1); Sodium 139 mmol/L (135-145); Total Protein 7.3 g/dL (6.5-8.0); Triglycerides 67 mg/dL (<150)
[2025-01-20 12:41] LABS: TSH reflex Free T4 1.08 uIU/mL (0.32-4.0)
== END 2025-01-20 08:07 | disposition home or self-care (01) ==
LOC: HO.WFDLDS 08:06
PROVIDERS: Visit Provider Internal Medicine
DX: I10 Essential (primary) hypertension (principal); E11.9 Type 2 diabetes mellitus without complications; E78.5 Hyperlipidemia, unspecified
CPT/HCPCS: 36415; 80053; 80061; 83036; 84443; 85025

== ENCOUNTER 2025-01-26 11:46 | Outpatient (AMB) | payer OTHER, SELFPAY ==
[2025-01-26 12:20] VITALS: BP 124/74; PULSE 84; RESP 18; TEMP 36.9; O2SAT 98; BMI 29.0
--- NOTE | 2025-01-26 12:20 | MHC.PC.OV ---
Vital Signs 01/26/25 12:20 Height 5 ft 6.75 in Weight 184 lb BMI 29.0 BP 124/74 Blood Pressure Location Rt brachial Position Sitting Respiration 18 Pulse 84 Pulse Source Pulse Oximeter Temp 98.4 F Temp Source Oral Pulse Oximetry (%) 98 Oxygen Delivery Method Room Air Intake Visit Reasons: Follow up visit on Ozempic. Intake Note: Pt is here today for a follow up visit on knee pain. Allergies No Known Allergies Allergy (Verified 12/19/24 10:58) Medication List - Last Reconciled 01/26/25 by Shakira Duarte MD lisinopril 20 mg PO DAILY meloxicam 15 mg PO DAILY metformin 1,000 mg PO DAILY Ozempic (semaglutide) 1 mg (0.75 mL) subcut QWEEK NS pravastatin 40 mg PO BEDTIME sod sulf-pot chloride-mag sulf 1.479-0.188- 0.225 gram (Sutab) PO PER PKG DIR for colonoscopy prep turmeric PO Tobacco use date assessed: 12/19/24 Dental Screening Dental Screen Date: 12/19/24 HPI Follow up visit on Ozempic. HPI Details Pt presents for f/u DM 2, HTN. Pt c/o worsening L knee pain also at rest and night. Patient has an appointment with Orthopedic at [facility] in 2 weeks. Her son is hospitalized with strep pneumonia and she has been helping out to take care of his small kids. [facility] Surgical History Hx of tubal ligation History of left oophorectomy Hx of appendectomy Family History Father Hypertension Mother Dementia Sister COPD (chronic obstructive pulmonary disease) Maternal Grandmother Breast cancer Social History Household Members Other:: , retired, 2 sons, Housing: House Patient Tobacco Use Status: Never used Tobacco e-Cigarette/Vaping Use: Never Used service: No Current occupational status: retired Cognitive needs: No Hearing needs: No Vision needs: Yes Questionnaire Thrive Questionnaire Date Thrive assessed: 12/19/24 I am a: Patient What is your living situation today?: I have a steady place to live Within the past 12 months, did the food you bought not last and you didn't have the money to get more?: Never true Within the past 12 months, did you worry whether your food would run out before you got money to buy more?: Never true Do you have trouble paying for medicines?: No Do you have trouble getting transportation to medical appointments?: No Do you have trouble paying your heating and electricity bill?: No Do you have trouble taking care of your child, family member or friend?: No Do you have trouble with day-to-day activities such as bathing, preparing meals, shopping, managing finances, etc.?: No Are you currently unemployed and looking for a job?: No Are you interested in more education?: No Please select the resources that you would like help with: None Currently or been in a relationship where the following occur: I choose not to answer THRIVE Score: 0 SO-7 AMB Questionnaire SO-7 Date SO - 7 assessed: 12/19/24 Source: Developed by Drs. Jasson Peterson, Joan Daugherty, Agustín Acosta and colleagues, with an educational matt from [email or web address]. Review of Systems Const All systems reviewed & are unremarkable except as noted in HPI and below Eyes Reports no additional complaints ENT Reports no additional complaints Card Reports no additional complaints Resp Reports no additional complaints GI Reports no additional complaints Reports no additional complaints Physical exam (Primary Care) Vital Signs: Last Vital Signs Temp 98.4 F 01/26/25 12:20 Pulse 84 01/26/25 12:20 Resp 18 01/26/25 12:20 BP 124/74 01/26/25 12:20 Pulse Ox 98 01/26/25 12:20 Oxygen Delivery Method Room Air 01/26/25 12:20 BMI result Body Mass Index 29.0 Tobacco/Smoking Status: Tobacco use Status Tobacco use date assessed 12/19/24 01/26/25 12:21 Patient Tobacco Use Status Never used Tobacco 01/26/25 12:21 e-Cigarette/Vaping Use Never Used 01/26/25 12:21 Thrive Assessment: Date of Thrive Assessment Date Thrive assessed 12/19/24 01/26/25 12:21 Currently or been in a relationship where the following occur: I choose not to answer Const General: no acute distress HENMT Face and sinus: Yes normal facial exam Eyes General: appearance normal, both eyes and all related structures Resp Effort & Inspection: normal respiratory effort Auscultation: clear to auscultation bilaterally Cardio Rhythm: regular rhythm Heart sounds: S1 normal heart sound present and S2 normal heart sound present GI Inspection: Yes normal to inspection Palpation (GI): Soft to palpation Extrem Other: There is decreased range of motion and crepitus of the left knee no soft tissue swelling Coding Level of Care Code Est Pt Level 4 (66186) Diagnoses DM type 2 (diabetes mellitus, type 2) E11.9 HTN (hypertension) I10 Hyperlipidemia E78.5 Assessment & Plan Assessment & Plan (1) DM type 2 (diabetes mellitus, type 2): Comment: X 12 yrs Code(s): E11.9 - Type 2 diabetes mellitus without complications Category: Medical Plan: A1c is down to 6.2, ADA diet regular physical activity discussed with the patient continue current medications follow-up in 3 months (2) HTN (hypertension): Code(s): I10 - Essential (primary) hypertension Category: Medical Plan: Continue current medications (3) Hyperlipidemia: Code(s): E78.5 - Hyperlipidemia, unspecified Category: Medical Plan: Continue statin Orders: Orders Hemoglobin A1c 3 Months E11.9 - Type 2 diabetes mellitus without complications, E78.5 - Hyperlipidemia, unspecified, I10 - Essential (primary) hypertension Comprehensive [place]. Panel Fast 3 Months E11.9 - Type 2 diabetes mellitus without complications, E78.5 - Hyperlipidemia, unspecified, I10 - Essential (primary) hypertension Lipid Panel 3 Months E11.9 - Type 2 diabetes mellitus without complications, E78.5 - Hyperlipidemia, unspecified, I10 - Essential (primary) hypertension Microalbumin, Random (w Creat) 3 Months E11.9 - Type 2 diabetes mellitus without complications, E78.5 - Hyperlipidemia, unspecified, I10 - Essential (primary) hypertension TSH reflex Free T4 3 Months E11.9 - Type 2 diabetes mellitus without complications, E78.5 - Hyperlipidemia, unspecified, I10 - Essential (primary) hypertension Medications: New meloxicam 15 mg PO DAILY 30 tabs 1RF Refilled lisinopril 20 mg PO DAILY 90 tabs 3RF pravastatin 40 mg PO BEDTIME 90 tabs 3RF Ozempic (semaglutide) 1 mg (0.75 mL) subcut QWEEK 9 mL 1RF NS
--- OUTSIDE RECORDS SUMMARY | 2025-01-26 13:57 | XMS_ITS | Clinical Summary ---
Author Organization [employer] Address [address] [place] [address] Care Team Providers Care Java Oracle Developer Name Role Phone Natalie Hayes MD Primary [...] Mammogram normal Anatomical Region Laterality Modality Other [facility] Provider HEALTH MAINTENANCE Final Result from Last 3 Months or Most Recently Relevant to Health Maintenance Insurance [facility] Care Teams Java Oracle Developer Relationship Specialty Start Date End Date Natalie Hayes MD PCP - General Internal Medicine 11/15/20
--- OUTSIDE RECORDS SUMMARY | 2025-01-26 13:57 | XMS_ITS | Patient Health Record ---
Author Organization [employer] [facility] Address [address] [address] Support Name Relationship Address Phone IAN CARRIE Guarantor Unknown [phone] Reason For Referral No Information Medications Medication SIG (Take, Route, Frequency, Duration) Notes Start Date End Date Status Calcium-Carb 600 + D 1 ORAL daily for -3 [facility] 2 Active Lisinopril 20MG 1 ORAL daily for -3 [facility] 10/28/2012 Active metFORMIN HCl 1GM 1 ORAL daily for -3 [facility] 10/28/2012 Active Multivitamins 1 ORAL daily for -3 [facility] 10/28/2012 Active Pravastatin Sodium 10MG 1 ORAL daily for -3 [facility] 2011 Active Problems Problem Type SNOMED Code ICD Code Onset Dates Problem Status W/U Status Risk Notes Problem Type II diabetes mellitus without complication (803880264) Diabetes mellitus without mention of complication, type II or unspecified type, not stated as uncontrolled (250.00) Active confirmed Major Problem Hyperlipidemia (01052896) Other and unspecified hyperlipidemia (272.4) Active confirmed Major Problem Obesity (566911422) Obesity, unspecified (278.00) Active confirmed Major Problem Gynecological examination normal (189070183301829) Routine gynecological examination (V72.31) Active confirmed Diag Plan Of Treatment No Information Insurance Providers Payer Name Payer Address Payer Phone Subscriber Number Group Number Insured Name Patient Relationship to Insured Coverage Start Date Coverage End Date CIGNA [address] [place], [place] [address] [phone] [id number] CARRIE SOSA Self - patient is the insured
== END 2025-01-26 12:59 | disposition home or self-care (01) ==
PROVIDERS: PCP Internal Medicine; Visit Provider Internal Medicine
DX: E11.9 Type 2 diabetes mellitus without complications (principal); I10 Essential (primary) hypertension; E78.5 Hyperlipidemia, unspecified

== ENCOUNTER → 2025-01-26 11:46 | Outpatient (BNVA) | payer OTHER, SELFPAY | PROVIDERS: PCP Internal Medicine; Visit Provider Internal Medicine ==

== ENCOUNTER 2025-04-22 10:41 | Outpatient (REF) | payer OTHER, SELFPAY ==
--- OUTSIDE RECORDS SUMMARY | 2025-04-22 11:45 | XMS_ITS | Patient Health Record ---
Author Organization [facility] Address [address] [facility] [address] [place] [address] Support Name Relationship Address Phone AIN CARRIE Guarantor Unknown [phone] Reason For Referral No Information Medications Medication SIG (Take, Route, Frequency, Duration) Notes Start Date End Date Status Calcium-Carb 600 + D 1 ORAL daily for -3 [facility] 2 Active Lisinopril 20MG 1 ORAL daily for -3 [facility] 10/28/2012 Active metFORMIN HCl 1GM 1 ORAL daily for -3 [facility] 10/28/2012 Active Multivitamins 1 ORAL daily for -3 [facility] 10/28/2012 Active Pravastatin Sodium 10MG 1 ORAL daily for -3 [facility] 2011 Active Problems Problem Type SNOMED Code ICD Code Onset Dates Problem Status W/U Status Risk Notes Problem Type II diabetes mellitus without complication (808935724) Diabetes mellitus without mention of complication, type II or unspecified type, not stated as uncontrolled (250.00) Active confirmed Major Problem Hyperlipidemia (28565739) Other and unspecified hyperlipidemia (272.4) Active confirmed Major Problem Obesity (036291231) Obesity, unspecified (278.00) Active confirmed Major Problem Gynecological examination normal (159606480179779) Routine gynecological examination (V72.31) Active confirmed Diag Plan Of Treatment No Information Insurance Providers Payer Name Payer Address Payer Phone Subscriber Number Group Number Insured Name Patient Relationship to Insured Coverage Start Date Coverage End Date [employer] [address] [place], [place] [address] [id number] CARRIE SOSA Self - patient is the insured
[2025-04-22 14:41] LABS: Estimated Average Glucose 123 mg/dL; Hemoglobin A1C 144.3314 umol/L; Hemoglobin A1c % 5.9 % (<6.0); Total Hemoglobin (HGBA1C) 3531.5378 umol/L
[2025-04-22 14:55] LABS: Creatinine Urine 51.89 mg/dL; Microalbumin Urine < 5.0 mg/L
[2025-04-22 15:13] LABS: Alanine Aminotransferase 38 U/L (0-31); Albumin Level 4.4 g/dL (3.5-5.0); Alkaline Phosphatase 83 U/L (39-117); Anion Gap 11 (12-20); Aspartate Amino Transferase 33 U/L (5-31); Bilirubin Total 0.7 mg/dL (0.0-1.0); Blood Urea Nitrogen 13 mg/dL (9-16); Calcium 9.1 mg/dL (8.4-10.2); Carbon Dioxide 27 mmol/L (22-29); Chloride 103 mmol/L (96-108); Cholesterol 150 mg/dL (<200); Estimated Glomerular Filt Rate > 60; Glucose Fasting 125 mg/dL (60-99); HDL Cholesterol 54 mg/dL (>40); LDL Cholesterol Calculated 84 mg/dL (<100); Potassium 4.4 mmol/L (3.3-5.1); Sodium 137 mmol/L (135-145); Triglycerides 63 mg/dL (<150)
== END 2025-04-22 10:42 | disposition home or self-care (01) ==
LOC: HO.WFDLDS 10:41
PROVIDERS: Visit Provider Internal Medicine
DX: E11.9 Type 2 diabetes mellitus without complications (principal); E78.5 Hyperlipidemia, unspecified; I10 Essential (primary) hypertension
CPT/HCPCS: 36415; 80053; 80061; 82570; 83036; 84443

== ENCOUNTER 2025-04-28 12:18 | Outpatient (AMB) | payer OTHER, SELFPAY ==
[2025-04-28 12:48] VITALS: BP 118/76; PULSE 88; RESP 18; TEMP 36.7; O2SAT 100; BMI 27.5
--- NOTE | 2025-04-28 12:48 | MHC.PC.OV ---
Vital Signs 04/28/25 12:48 Height 5 ft 6.75 in Weight 174 lb BMI 27.5 BP 118/76 Blood Pressure Location Lt brachial Position Sitting Respiration 18 Pulse 88 Pulse Source Pulse Oximeter Temp 98.0 F Temp Source Oral Pulse Oximetry (%) 100 Oxygen Delivery Method Room Air Intake Visit Reasons: Follow up Intake Note: Pt is here today for a follow up visit. Allergies No Known Allergies Allergy (Verified 12/19/24 10:58) Medication List - Last Reconciled 04/28/25 by Shakira Duarte MD lisinopril 20 mg PO DAILY meloxicam 15 mg PO DAILY metformin 1,000 mg PO DAILY Ozempic (semaglutide) 1 mg (0.75 mL) subcut QWEEK NS pravastatin 40 mg PO BEDTIME sod sulf-pot chloride-mag sulf 1.479-0.188- 0.225 gram (Sutab) PO PER PKG DIR for colonoscopy prep turmeric PO Tobacco use date assessed: 12/19/24 Dental Screening Dental Screen Date: 12/19/24 HPI Follow up HPI Details Pt c/o LBP worse when walking for 1 month,. She denies pain radiating to lower extremities weakness or numbness in extremities change in bladder or bowel function. Patient reports intermittent abdominal bloating, nausea, right upper quadrant abdominal discomfort and intermittent constipation since she increase the dose of Ozempic to 1 mg 2 months ago. She denies vomiting fever chills dysuria hematuria hematochezia. Hypertension hyperlipidemia controlled on current medications. REPLACED BY [facility] Medical History (Updated 04/28/25 @ 16:17 by Shakira Duarte MD) DM type 2 (diabetes mellitus, type 2) HTN (hypertension) Hyperlipidemia Surgical History Hx of tubal ligation History of left oophorectomy Hx of appendectomy Family History Father Hypertension Mother Dementia Sister COPD (chronic obstructive pulmonary disease) Maternal Grandmother Breast cancer Social History Household Members Other:: , retired, 2 sons, Housing: House Patient Tobacco Use Status: Never used Tobacco e-Cigarette/Vaping Use: Never Used service: No Current occupational status: retired Cognitive needs: No Hearing needs: No Vision needs: Yes Questionnaire Thrive Questionnaire Date Thrive assessed: 12/19/24 I am a: Patient What is your living situation today?: I have a steady place to live Within the past 12 months, did the food you bought not last and you didn't have the money to get more?: Never true Within the past 12 months, did you worry whether your food would run out before you got money to buy more?: Never true Do you have trouble paying for medicines?: No Do you have trouble getting transportation to medical appointments?: No Do you have trouble paying your heating and electricity bill?: No Do you have trouble taking care of your child, family member or friend?: No Do you have trouble with day-to-day activities such as bathing, preparing meals, shopping, managing finances, etc.?: No Are you currently unemployed and looking for a job?: No Are you interested in more education?: No Please select the resources that you would like help with: None Currently or been in a relationship where the following occur: I choose not to answer THRIVE Score: 0 SO-7 AMB Questionnaire SO-7 Date SO - 7 assessed: 12/19/24 Source: Developed by Drs. Jasson Peterson, Joan Daugherty, Agustín Acosta and colleagues, with an educational matt from [email or web address]. Review of Systems Const All systems reviewed & are unremarkable except as noted in HPI and below Eyes Reports no additional complaints ENT Reports no additional complaints Card Reports no additional complaints Resp Reports no additional complaints GI Reports no additional complaints Reports no additional complaints Physical exam (Primary Care) Vital Signs: Last Vital Signs Temp 98.0 F 04/28/25 12:48 Pulse 88 04/28/25 12:48 Resp 18 04/28/25 12:48 BP 118/76 04/28/25 12:48 Pulse Ox 100 04/28/25 12:48 Oxygen Delivery Method Room Air 04/28/25 12:48 BMI result Body Mass Index 27.5 Tobacco/Smoking Status: Tobacco use Status Tobacco use date assessed 12/19/24 04/28/25 12:48 Patient Tobacco Use Status Never used Tobacco 04/28/25 12:48 e-Cigarette/Vaping Use Never Used 04/28/25 12:48 Thrive Assessment: Date of Thrive Assessment Date Thrive assessed 12/19/24 04/28/25 12:48 Currently or been in a relationship where the following occur: I choose not to answer Const General: no acute distress HENMT Head: Yes normal to inspection Face and sinus: Yes normal facial exam Neck Neck: Yes no lymphadenopathy and Yes supple Resp Effort & Inspection: normal respiratory effort Auscultation: clear to auscultation bilaterally Cardio Rhythm: regular rhythm Heart sounds: S1 normal heart sound present and S2 normal heart sound present GI Inspection: Yes normal to inspection Palpation (GI): Soft to palpation Percussion: Yes normal to percussion Auscultation: normal bowel sounds Coding Level of Care Code Est Pt Level 4 (76967) Diagnoses Hyperlipidemia E78.5 DM type 2 (diabetes mellitus, type 2) E11.9 HTN (hypertension) I10 Constipation K59.00 Assessment & Plan Assessment & Plan (1) Hyperlipidemia: Code(s): E78.5 - Hyperlipidemia, unspecified Category: Medical Plan: CONTINUE STATIN (2) DM type 2 (diabetes mellitus, type 2): Comment: X 12 yrs, on metformin and Ozempic 1 mg, A1C 5.9 03/2025 Code(s): E11.9 - Type 2 diabetes mellitus without complications Category: Medical Plan: A1c is 5.9, continue ADA diet metformin and Ozempic, increase physical activity and weight loss discussed with the patient . Patient's GI symptoms are most likely related to Ozempic side effects but patient is overdue for colonoscopy. She will get a new health insurance in May and will contact the office with the name of the lubricating specialist for the referral for colonoscopy. follow-up in 3 months (3) HTN (hypertension): Code(s): I10 - Essential (primary) hypertension Category: Medical Plan: Continue Lisinopril (4) Constipation: Code(s): K59.00 - Constipation, unspecified Category: Medical Plan: For intermittent constipation with bloating and nausea patient was advised to start MiraLax twice a day until loose bowel movements and then continue at least once a day. She was advised to increase fluid and fiber intake. She will be referred to GI for colonoscopy as soon as patient gets a new health insurance Orders: Orders Hemoglobin A1c 3 Months E11.9 - Type 2 diabetes mellitus without complications, E78.5 - Hyperlipidemia, unspecified, I10 - Essential (primary) hypertension Comprehensive [place]. Panel Fast 3 Months E11.9 - Type 2 diabetes mellitus without complications, E78.5 - Hyperlipidemia, unspecified, I10 - Essential (primary) hypertension Vitamin D 25-OH Total 3 Months E11.9 - Type 2 diabetes mellitus without complications, E78.5 - Hyperlipidemia, unspecified, I10 - Essential (primary) hypertension Complete Blood Count Auto Diff 3 Months E11.9 - Type 2 diabetes mellitus without complications, E78.5 - Hyperlipidemia, unspecified, I10 - Essential (primary) hypertension Lipid Panel 3 Months E11.9 - Type 2 diabetes mellitus without complications, E78.5 - Hyperlipidemia, unspecified, I10 - Essential (primary) hypertension
--- OUTSIDE RECORDS SUMMARY | 2025-04-28 13:43 | XMS_ITS | Patient Health Record ---
Author Organization [facility] Address [address] [address] Support Name Relationship Address Phone IAN CARRIE Guarantor Unknown [phone] Reason For Referral No Information Medications Medication SIG (Take, Route, Frequency, Duration) Notes Start Date End Date Status Calcium-Carb 600 + D 1 ORAL daily for -3 [facility] 2 Active Lisinopril 20MG 1 ORAL daily for -3 [facility] 10/28/2012 Active metFORMIN HCl 1GM 1 ORAL daily for -3 [facility] 10/28/2012 Active Multivitamins 1 ORAL daily for -3 [facility] 10/28/2012 Active Pravastatin Sodium 10MG 1 ORAL daily for -3 [facility] 2011 Active Problems Problem Type SNOMED Code ICD Code Onset Dates Problem Status W/U Status Risk Notes Problem Type II diabetes mellitus without complication (090789423) Diabetes mellitus without mention of complication, type II or unspecified type, not stated as uncontrolled (250.00) Active confirmed Major Problem Other and unspecified hyperlipidemia (272.4) Active confirmed Major Problem Obesity (441111195) Obesity, unspecified (278.00) Active confirmed Major Problem Gynecological examination normal (314836112664993) Routine gynecological examination (V72.31) Active confirmed Diag Plan Of Treatment No Information Insurance Providers Payer Name Payer Address Payer Phone Subscriber Number Group Number Insured Name Patient Relationship to Insured Coverage Start Date Coverage End Date CIGNA [address] [place], [place] [id number] CARRIE SOSA Self - patient is the insured
== END 2025-04-28 13:41 | disposition home or self-care (01) ==
LOC: HO.HMCC 12:19
PROVIDERS: PCP Internal Medicine; Visit Provider Internal Medicine
DX: E78.5 Hyperlipidemia, unspecified (principal); E11.9 Type 2 diabetes mellitus without complications; I10 Essential (primary) hypertension; K59.00 Constipation, unspecified

== ENCOUNTER → 2025-04-28 12:18 | Outpatient (BNVA) | payer OTHER, SELFPAY | PROVIDERS: PCP Internal Medicine; Visit Provider Internal Medicine ==

== ENCOUNTER 2025-08-21 09:29 | Outpatient (REF) | payer MEDICARE, SELFPAY ==
--- OUTSIDE RECORDS SUMMARY | 2025-08-21 10:26 | XMS_ITS | Patient Health Record ---
Author Organization [facility] Address [address] [facility] [address] [place] [address] Support Name Relationship Address Phone IAN, CARRIE Guarantor Unknown [phone] Reason For Referral No Information Medications Medication SIG (Take, Route, Frequency, Duration) Notes Start Date End Date Status Calcium-Carb 600 + D 1 ORAL daily; Duration: -3 [facility]- Active Lisinopril 20MG 1 ORAL daily; Duration: -3 [facility]- 012 Active metFORMIN HCl 1GM 1 ORAL daily; Duration: -3 [facility]- 10/28 Active Multivitamins 1 ORAL daily; Duration: -3 [facility] 2 Active Pravastatin Sodium 10MG 1 ORAL daily; Duration: -3 [facility]- 10/28/2012 Active Problems Problem Type SNOMED Code ICD Code Onset Dates Problem Status W/U Status Risk Notes Problem Type II diabetes mellitus without complication (024249720) Diabetes mellitus without mention of complication, type II or unspecified type, not stated as uncontrolled (250.00) Active confirmed Major Problem Hyperlipidemia (44968260) Other and unspecified hyperlipidemia (272.4) Active confirmed Major Problem Obesity (808209787) Obesity, unspecified (278.00) Active confirmed Major Problem Gynecological examination normal (997114713703751) Routine gynecological examination (V72.31) Active confirmed Diag Plan Of Treatment No Information Insurance Providers Payer Name Payer Address Payer Phone Subscriber Number Group Number Insured Name Patient Relationship to Insured Coverage Start Date Coverage End Date CIGNA [address] [place] [address] [phone] [id number] CARRIE SOSA Self - patient is the insured
[2025-08-21 11:34] LABS: MANUAL DIFF FLAG NO
[2025-08-21 11:38] LABS: Hematocrit 34.8 % (37.0-47.0); Hemoglobin 11.8 g/dl (12.0-16.0); Imm Gran Abs Auto 0.01 X10*3/uL (0.00-0.03); Imm Gran Pct Auto 0.3 % (0.0-0.4); Lymphocytes Absolute Auto 0.9 X10*3/uL (1.2-4.9); Mean Corpuscular HGB Conc 33.9 g/dl (31.0-35.0); Mean Corpuscular Hemoglobin 32.6 pg (27.0-33.0); Mean Corpuscular Volume 96.1 fL (80.0-98.0); NRBC Abs Auto 0.000 X10*3/uL (0.0-0.012); NRBC Pct Auto 0.0 /100WBC (0.0-0.2); Platelet Count 215 X10*3/uL (160-400); Red Blood Count 3.62 X10*6/uL (4.20-5.50); White Blood Count 3.7 X10*3/uL (4.8-10.8)
[2025-08-21 11:59] LABS: Hemoglobin A1C 114.9520 umol/L; Total Hemoglobin (HGBA1C) 3123.6101 umol/L
[2025-08-21 12:15] LABS: Alanine Aminotransferase 33 U/L (0-31); Albumin Level 4.4 g/dL (3.5-5.0); Alkaline Phosphatase 71 U/L (39-117); Anion Gap 10 (12-20); Aspartate Amino Transferase 33 U/L (5-31); Blood Urea Nitrogen 16 mg/dL (9-16); Calcium 9.2 mg/dL (8.4-10.2); Carbon Dioxide 28 mmol/L (22-29); Chloride 103 mmol/L (96-108); Cholesterol 142 mg/dL (<200); Estimated Glomerular Filt Rate > 60; HDL Cholesterol 45 mg/dL (>40); Potassium 4.6 mmol/L (3.3-5.1); Sodium 136 mmol/L (135-145); Total Protein 6.8 g/dL (6.5-8.0); Triglycerides 85 mg/dL (<150)
== END 2025-08-21 09:30 | disposition home or self-care (01) ==
LOC: HO.WFDLDS 09:29
PROVIDERS: Visit Provider Internal Medicine
DX: E11.69 Type 2 diabetes mellitus with other specified complication (principal); I10 Essential (primary) hypertension; Z13.21 Encounter for screening for nutritional disorder
CPT/HCPCS: 36415; 80053; 80061; 82306; 83036; 85025

== ENCOUNTER 2025-08-27 08:55 | Outpatient (REF) | payer MEDICARE, SELFPAY ==
[2025-08-27 13:51] LABS: Iron 108 mcg/dL (30-160); Percent Iron Saturation 34 % (15-50); Total Iron Binding Capacity 316 mcg/dL (228-428); Unsaturated Iron Binding 208 ug/dL
== END 2025-08-27 08:56 | disposition home or self-care (01) ==
LOC: HO.HMGCLDS 08:55
PROVIDERS: PCP Internal Medicine; Visit Provider Internal Medicine
DX: I10 Essential (primary) hypertension (principal); D64.9 Anemia, unspecified; M25.561 Pain in right knee; M25.562 Pain in left knee; K62.5 Hemorrhage of anus and rectum; E11.9 Type 2 diabetes mellitus without complications; Z79.84 Long term (current) use of oral hypoglycemic drugs; Z79.899 Other long term (current) drug therapy
CPT/HCPCS: 36415; 83540

== ENCOUNTER 2025-08-27 08:55 | Outpatient (AMB) | payer OTHER, SELFPAY ==
[2025-08-27 09:03] VITALS: BP 106/68; PULSE 81; RESP 18; TEMP 36.7; O2SAT 100; BMI 25.4
--- NOTE | 2025-08-27 09:03 | MHC.PC.OV ---
Vital Signs 08/27/25 09:03 Height 5 ft 6.75 in Weight 161 lb BMI 25.4 BP 106/68 Blood Pressure Location Lt brachial Position Sitting Respiration 18 Pulse 81 Pulse Source Pulse Oximeter Temp 98.1 F Temp Source Oral Pulse Oximetry (%) 100 Oxygen Delivery Method Room Air Intake Visit Reasons: 4m follow up Intake Note: Pt is here today for 4 months follow up visit. Allergies No Known Allergies Allergy (Verified 08/27/25 09:04) Medication List - Last Reconciled 08/27/25 by Shakira Duarte MD lisinopril 20 mg PO DAILY meloxicam 15 mg PO DAILY metformin 1,000 mg PO DAILY Ozempic (semaglutide) 1 mg (0.75 mL) subcut QWEEK NS pravastatin 40 mg PO BEDTIME sod sulf-pot chloride-mag sulf 1.479-0.188- 0.225 gram (Sutab) PO PER PKG DIR for colonoscopy prep turmeric PO Tobacco use date assessed: 08/27/25 Fall risk assessment: 1 Fall in past year Last assessed Fall Risk: 08/27/25 Dental Screening Dental Screen Date: 12/19/24 HPI 4m follow up HPI Details Pt presents for f/u DM2, HTN, hyperlipid, stable on meds. Patient was seen in the ER on June 26 with a complaint of chest pain cardiac workup was negative patient had CT angio of chest and abdomen which revealed coronary artery calcification and 3 cm cystic lesion in the head of the pancreas MRCP was recommended. Two weeks later patient had an episode of bright red blood per rectum for 24 hour with vasovagal episode after having bowel movement. Patient denies any recurrent GI bleeding since then. She has been taking meloxicam on and off for chronic knee pain. Patient was seen by [facility] and had cortisone injection in the knees without significant relief. She has moderate osteoarthritis in both knees and would like to see a different orthopedic surgeon. [facility] Medical History (Updated 08/27/25 @ 09:52 by Shakria Duarte MD) Knee pain, bilateral Anemia Rectal bleeding Pancreatic mass DM type 2 (diabetes mellitus, type 2) HTN (hypertension) Hyperlipidemia Surgical History Hx of tubal ligation History of left oophorectomy Hx of appendectomy Family History Father Hypertension Mother Dementia Sister COPD (chronic obstructive pulmonary disease) Maternal Grandmother Breast cancer Social History Household Members Other:: , retired, 2 sons, Housing: House Patient Tobacco Use Status: Never used Tobacco e-Cigarette/Vaping Use: Never Used service: No Current occupational status: retired Cognitive needs: No Hearing needs: No Vision needs: Yes Questionnaire PHQ-9 Over the last 2 weeks, how often have you been bothered by any of the following problems? 1. Little interest or pleasure in doing things: several days 2. Feeling down, depressed, or hopeless: not at all 3. Trouble falling or staying asleep, or sleeping too much: several days 4. Feeling tired or having little energy: several days 5. Poor appetite or overeating: several days 6. Feeling bad about yourself - or that you are a failure or have let yourself or your family down: not at all 7. Trouble concentrating on things, such as reading the newspaper or watching television: not at all 8. Moving or speaking so slowly that other people could have noticed. Or the opposite - being so fidgety or restless that you have been moving around a lot more than usual: not at all 9. Thoughts that you would be better off or of hurting yourself in some way: not at all Total score: 4 Depression Screening Interpretation: Negative Depression Screening Done: Yes Source: Developed by Drs. Jasson Peterson, Joan Daugherty, Agustín Acosta and colleagues, with an educational matt from [employer]. Thrive Questionnaire Date Thrive assessed: 12/19/24 I am a: Patient What is your living situation today?: I have a steady place to live Within the past 12 months, did the food you bought not last and you didn't have the money to get more?: Never true Within the past 12 months, did you worry whether your food would run out before you got money to buy more?: Never true Do you have trouble paying for medicines?: No Do you have trouble getting transportation to medical appointments?: No Do you have trouble paying your heating and electricity bill?: No Do you have trouble taking care of your child, family member or friend?: No Do you have trouble with day-to-day activities such as bathing, preparing meals, shopping, managing finances, etc.?: No Are you currently unemployed and looking for a job?: No Are you interested in more education?: No Please select the resources that you would like help with: None Currently or been in a relationship where the following occur: I choose not to answer THRIVE Score: 0 AUDIT C Alcohol Use Questionnaire (AUDIT-C) 1. How often do you have a drink containing alcohol?: Never 3. How often do you have six or more drinks on one occasion?: Never Total Score: 0 SO-7 AMB Questionnaire SO-7 Date SO - 7 assessed: 12/19/24 Feeling nervous, anxious, or on edge: 0 = Not at all Not being able to stop or control worryin = Not at all Worrying too much about different things: 0 = Not at all Trouble relaxin = Not at all Being so restless that it is hard to sit still: 0 = Not at all Becoming easily annoyed or irritable: 0 = Not at all Feeling afraid as if something awful might happen: 0 = Not at all Total SO-7 score (0-4 normal; 5-9 mild; 10-14 moderate; 15-21 severe): 0 Source: Developed by Drs. Jasson Peterson, Joan Daugherty, Agustín Acosta and colleagues, with an educational matt from [employer]. Review of Systems Const All systems reviewed & are unremarkable except as noted in HPI and below Eyes Reports no additional complaints ENT Reports no additional complaints Card Reports no additional complaints Resp Reports no additional complaints GI Reports no additional complaints Reports no additional complaints Physical exam (Primary Care) Vital Signs: Last Vital Signs Temp 98.1 F 08/27/25 09:03 Pulse 81 08/27/25 09:03 Resp 18 08/27/25 09:03 BP 106/68 08/27/25 09:03 Pulse Ox 100 08/27/25 09:03 Oxygen Delivery Method Room Air 08/27/25 09:03 BMI result Body Mass Index 25.4 Tobacco/Smoking Status: Tobacco use Status Tobacco use date assessed 08/27/25 08/27/25 09:08 Patient Tobacco Use Status Never used Tobacco 08/27/25 09:08 e-Cigarette/Vaping Use Never Used 08/27/25 09:08 PHQ-9: PHQ-9 Score PHQ-9: Total score 4 08/27/25 09:24 Depression Screening Interpretation: Negative Thrive Assessment: Date of Thrive Assessment Date Thrive assessed 12/19/24 08/27/25 09:08 Currently or been in a relationship where the following occur: I choose not to answer Const General: no acute distress HENMT Head: Yes normal to inspection General nose exam: Normal external nose present Face and sinus: Yes normal facial exam Mouth: Normal oral and palatal mucosa present Eyes General: appearance normal, both eyes and all related structures Neck Neck: Yes no lymphadenopathy and Yes supple Resp Effort & Inspection: normal respiratory effort Auscultation: clear to auscultation bilaterally Cardio Rhythm: regular rhythm Heart sounds: S1 normal heart sound present and S2 normal heart sound present GI Inspection: Yes normal to inspection Palpation (GI): Soft to palpation Percussion: Yes normal to percussion Auscultation: normal bowel sounds Coding Level of Care Code Est Pt Level 4 (97574) Diagnoses Knee pain, bilateral M25.561; M25.562 Rectal bleeding K62.5 Anemia D64.9 DM type 2 (diabetes mellitus, type 2) E11.9 HTN (hypertension) I10 Assessment & Plan Assessment & Plan (1) Knee pain, bilateral: Comment: seen by [facility], cortisone injections not affective 2024 Code(s): M25.561 - Pain in right knee; M25.562 - Pain in left knee Category: Medical Plan: refer to [facility] (2) Rectal bleeding: Comment: One episode in mid June 2025 Code(s): K62.5 - Hemorrhage of anus and rectum Category: Medical Plan: Patient is overdue for colonoscopy will be referred to Dr. Herron for colonoscopy and possible EGD with the episode of rectal bleed and anemia, patient was advised not to take NSAIDs (3) Anemia: Code(s): D64.9 - Anemia, unspecified Category: Medical Plan: Check iron studies (4) DM type 2 (diabetes mellitus, type 2): Comment: X 12 yrs, on metformin and Ozempic 1 mg, A1C 5.9 03/2025 Code(s): E11.9 - Type 2 diabetes mellitus without complications Category: Medical Plan: A1c is 5.5, continue ADA diet regular exercise current medications (5) HTN (hypertension): Code(s): I10 - Essential (primary) hypertension Category: Medical Plan: Blood pressure is low and lisinopril will be decreased to 10 mg a day, patient will follow-up in 3 months Orders: Orders MR abdomen wo/w con Today K86.89 - Other specified diseases of pancreas Hemoglobin A1c 3 Months E11.9 - Type 2 diabetes mellitus without complications, I10 - Essential (primary) hypertension, Z00.00 - Encounter for general adult medical examination without abnormal findings Complete Blood Count Auto Diff 3 Months E11.9 - Type 2 diabetes mellitus without complications, I10 - Essential (primary) hypertension, Z00.00 - Encounter for general adult medical examination without abnormal findings Microalbumin, Random (w Creat) 3 Months E11.9 - Type 2 diabetes mellitus without complications, I10 - Essential (primary) hypertension, Z00.00 - Encounter for general adult medical examination without abnormal findings AMB EKG-In Office Today E11.9 - Type 2 diabetes mellitus without complications, I10 - Essential (primary) hypertension IRON PROFILE Today D64.9 - Anemia, unspecified Comprehensive Endeavor. Panel Fast 3 Months E11.9 - Type 2 diabetes mellitus without complications, I10 - Essential (primary) hypertension, Z00.00 - Encounter for general adult medical examination without abnormal findings Lipid Panel 3 Months E11.9 - Type 2 diabetes mellitus without complications, I10 - Essential (primary) hypertension, Z00.00 - Encounter for general adult medical examination without abnormal findings Referrals Orthopedics Referral M25.561 - Pain in right knee, M25.562 - Pain in left knee Gastroenterology Referral D64.9 - Anemia, unspecified, K62.5 - Hemorrhage of anus and rectum Medications: New atorvastatin (Lipitor) 40 mg PO DAILY 90 tabs 2RF lisinopril 10 mg PO DAILY 90 tabs 3RF Discontinued lisinopril Discontinued Reason: Doctor's Order 20 mg PO DAILY 90 tabs 3RF meloxicam Discontinued Reason: Change Referral Type 15 mg PO DAILY 90 tabs 1RF
--- OUTSIDE RECORDS SUMMARY | 2025-08-27 09:32 | XMS_ITS ---
Author Name [facility] Organization Unknown Care Team Organization Name Specialty Phone Email Start Date End [facility] Termed, PROVIDER Primary Care 10/03/202206/26
--- OUTSIDE RECORDS SUMMARY | 2025-08-27 09:32 | XMS_ITS | Clinical Summary ---
Author Organization [facility] Address [address] [place] [address] Care Team Providers Care Business Services Tech Name Role Phone Natalie Hayes MD Primary Care Provider [employer] Allergies No known active allergies Medications [...] 1 (one) time each day. Active Immunizations Immunization Administration Dates Next Due Influenza, Quad Single [...] 72 11/15/2020 12:27 PM EST Temperature 36.5 C (97.7 F) 11/15/2020 10:46 AM EST Respiratory Rate - - Oxygen Saturation 97% [...] Additional history exists Mammogram 10/11/2022 10/11/2020, 09/29/2020 Bone Density DEXA 2025 COVID-19 Vaccine ( - 2023-2 5 season) 2025 Influenza Vaccine (#1) 2025 09/13/2020 Cervical Cancer Screening (Pap/HPV) 11/15/2025 11/15/2020 Colonoscopy 11/15/2030 11/15/2020 Colorectal Cancer Screening 11/15/2030 RSV Vaccine (SCDM) (1 - 1-do se 75+ series) 2035 Procedures Procedure Name Priority Date/Time Associated Diagnosis Comments PAP SMEAR Routine 11/15/2020 HM COLONOSCOPY Routine 11/15/2020 MAMMOGRAPHY Routine 10/11/2020 from Last 3 Months or Most Recently Relevant to Health Maintenance Results * Colonoscopy (11/15/2020) Colonoscopy normal Comment:age 51 Historical Provider HEALTH MAINTENANCE Final Result * Pap Smear (11/15/2020) Pap smear normal Comment:6 or 7 years ago [facility] Provider MD HEALTH MAINTENANCE Final Result * Mammography (10/11/2020) Mammogram normal Anatomical Region Laterality Modality Other [facility] Provider MD HEALTH MAINTENANCE Final Result from Last 3 Months or Most Recently Relevant to Health Maintenance Insurance [facility] Care Teams Business Services Tech Relationship Specialty Start Date End Date Natalie Hayes MD PCP - General Internal Medicine 11/15/20
--- OUTSIDE RECORDS SUMMARY | 2025-08-27 09:32 | XMS_ITS | Patient Health Record ---
Author Organization [facility] Address [address] [facility] [address] [place] [address] Support Name Relationship Address Phone IAN, CARRIE Guarantor Unknown [phone] Reason For Referral No Information Medications Medication SIG (Take, Route, Frequency, Duration) Notes Start Date End Date Status Calcium-Carb 600 + D 1 ORAL daily; Duration: -3 [facility]- Active Lisinopril 20MG 1 ORAL daily; Duration: -3 [facility]- 012 Active metFORMIN HCl 1GM 1 ORAL daily; Duration: -3 [facility]- 10/28 Active Multivitamins 1 ORAL daily; Duration: -3 [facility] 2 Active Pravastatin Sodium 10MG 1 ORAL daily; Duration: -3 [facility]- 10/28/2012 Active Problems Problem Type SNOMED Code ICD Code Onset Dates Problem Status W/U Status Risk Notes Problem Type II diabetes mellitus without complication (871237354) Diabetes mellitus without mention of complication, type II or unspecified type, not stated as uncontrolled (250.00) Active confirmed Major Problem Hyperlipidemia (41980371) Other and unspecified hyperlipidemia (272.4) Active confirmed Major Problem Obesity (254158838) Obesity, unspecified (278.00) Active confirmed Major Problem Gynecological examination normal (809121753380313) Routine gynecological examination (V72.31) Active confirmed Diag Plan Of Treatment No Information Insurance Providers Payer Name Payer Address Payer Phone Subscriber Number Group Number Insured Name Patient Relationship to Insured Coverage Start Date Coverage End Date CIGNA [address] [place] [id number] CARRIE SOSA Self - patient is the insured
== END 2025-08-27 09:59 | disposition home or self-care (01) ==
LOC: HO.HMCC 08:55
PROVIDERS: PCP Internal Medicine; Visit Provider Internal Medicine
DX: M25.561 Pain in right knee (principal); M25.562 Pain in left knee; K62.5 Hemorrhage of anus and rectum; E11.9 Type 2 diabetes mellitus without complications; D64.9 Anemia, unspecified; I10 Essential (primary) hypertension

== ENCOUNTER → 2025-09-30 12:51 | Outpatient (BNV) | payer OTHER, SELFPAY | PROVIDERS: PCP Internal Medicine; Visit Provider Radiology Diagnostic Radiology | DX: K86.89 Other specified diseases of pancreas (principal) | CPT/HCPCS: 74183 ==

== ENCOUNTER 2025-09-30 13:04 | Outpatient (REF) | payer OTHER, SELFPAY ==
--- NOTE | ~2025-09-30 | MR_ITS ---
EXAMINATION: MR ABDOMEN WITHOUT THEN WITH IV CONTRAST HISTORY: K86.89 - Other specified diseases of pancreas COMPARISON: There are no prior studies available for comparison. TECHNIQUE: Axial in and out of phase T1-weighted gradient echo, axial diffusion weighted, and axial and coronal HASTE T2 with fat saturation images were obtained through the abdomen. Subsequently, fat suppressed axial and coronal T1-weighted images were obtained after the intravenous administration of 7 mL Gadavist. FINDINGS: Liver: There is no loss of signal intensity in the liver on opposed phase imaging to suggest steatosis. There is no enhancing liver mass. The hepatic and portal veins are patent. There is no intrahepatic biliary dilatation. Gallbladder/biliary tree: No gallstones are identified. The common bile duct is normal in caliber. No intraluminal filling defects are identified to suggest choledocholithiasis. Spleen: The spleen is unremarkable. Pancreas: There is a cluster of cysts in the uncinate process of the pancreas measuring 3.0 x 2.8 x 1.5 cm in aggregate. A connection is seen with the pancreatic duct. 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 There is no associated enhancement. There is no enhancing pancreatic mass. The pancreatic duct is normal in caliber. Adrenals: The adrenal glands are unremarkable. Kidneys: The kidneys are unremarkable. There is no hydronephrosis. Lymph nodes: There is no retroperitoneal lymphadenopathy in the upper abdomen. Fluid: There is no ascites in the upper abdomen. Visualized bowel: The visualized small and large bowel loops are unremarkable in appearance. Visualized bones: There is degenerative disc disease of the spine. 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 Follow-up is recommended with MRI in 6 months. Electronically signed by: Jasson Ferraro MD 09/30/2025 02:24 PM [facility]
--- OUTSIDE RECORDS SUMMARY | 2025-09-30 15:52 | XMS_ITS | Clinical Summary ---
Author Organization [facility] Address [address] [place] [address] Care Team Providers Care Biofuels Engineering Manager Name Role Phone Natalie Hayes MD Primary [...] 1960 Hepatitis C Screening 1960 Sigmoidoscopy 1960 MMR Vaccines (1 of 1 - Standard series) 1961 PHQ-9 Depression Screen 1972 Complete Annual HRA 1978 SO-7 Anxiety Screen 1978 Pneumococcal Vaccine: 50+ Years (1 of 1 - PCV) 2010 Zoster Vaccines (1 of 2) 2010 DTaP,Tdap,and Td Vaccines (1 - Tdap) 03/19/2021 03/18/2021 Annual Preventive Exam 10/27/2021 0, 10/27/2020, 10/20/2019, Additional history exists Mammogram 10/11/2022 10/11/2020, 09/29/2020 Bone Density DEXA 2025 COVID-19 Vaccine ( - season) 2025 Influenza Vaccine (#1) 2025 09/13/2020 Cervical Cancer Screening (Pap/HPV) 11/15/2025 11/15/2020 Colonoscopy 11/15/2030 11/15/2020 Colorectal Cancer Screening 11/15/2030 RSV Vaccine (SCDM) (1 - 1-dose 75+ series) 2035 Hepatitis B Vaccines Aged Out No long er eligible based on patient's age to complete this topic Procedures Procedure Name Priority Date/Time Associated Diagnosis Comments PAP SMEAR Routine 11/15/2020 COLONOSCOPY Routine 11/15/2020 MAMMOGRAPHY Routine 10/11/2020 from Last 3 Months or Most Recently Relevant to Health Maintenance Results * Colonoscopy (11/15/2020) Colonoscopy normal Comment:age 51 Historical Provider MD HEALTH MAINTENANCE Final Result * Pap Smear (11/15/2020) Pap smear normal Comment:6 or 7 years ago [facility] Provider MD HEALTH MAINTENANCE Final Result * Mammography (10/11/2020) Mammogram normal Anatomical Region Laterality Modality Other [facility] Provider HEALTH MAINTENANCE Final Result from Last 3 Months or Most Recently Relevant to Health Maintenance Insurance [facility] Care Teams Biofuels Engineering Manager Relationship Specialty Start Date End Date Natalie Hayes MD PCP - General Internal Medicine 11/15/20
--- OUTSIDE RECORDS SUMMARY | 2025-09-30 15:52 | XMS_ITS | Patient Health Record ---
Author Organization [facility] Address [address] [facility] [address] [place] [address] Support Name Relationship Address Phone IAN, CARRIE Guarantor Unknown [phone] Reason For Referral No Information Medications Medication SIG (Take, Route, Frequency, Duration) Notes Start Date End Date Status Calcium-Carb 600 + D 1 ORAL daily; Duration: -3 [facility]- Active Lisinopril 20MG 1 ORAL daily; Duration: -3 [facility]- 012 Active metFORMIN HCl 1GM 1 ORAL daily; Duration: -3 [place]- 10/28 Active Multivitamins 1 ORAL daily; Duration: -3 [facility] 2 Active Pravastatin Sodium 10MG 1 ORAL daily; Duration: -3 [place]- 10/28/2012 Active Problems Problem Type SNOMED Code ICD Code Onset Dates Problem Status W/U Status Risk Notes Problem Type II diabetes mellitus without complication (881712700) Diabetes mellitus without mention of complication, type II or unspecified type, not stated as uncontrolled (250.00) Active confirmed Major Problem Hyperlipidemia (81605604) Other and unspecified hyperlipidemia (272.4) Active confirmed Major Problem Obesity (119702505) Obesity, unspecified (278.00) Active confirmed Major Problem Gynecological examination normal (297923147524450) Routine gynecological examination (V72.31) Active confirmed Diag Plan Of Treatment No Information Insurance Providers Payer Name Payer Address Payer Phone Subscriber Number Group Number Insured Name Patient Relationship to Insured Coverage Start Date Coverage End Date CIGNA [address] [place] [id number] [phone] [id number] CARRIE SOSA Self - patient is the insured
== END 2025-09-30 13:05 | disposition home or self-care (01) ==
LOC: HO.MRI 13:04
PROVIDERS: PCP Internal Medicine; Visit Provider Internal Medicine
DX: K86.89 Other specified diseases of pancreas (principal)
CPT/HCPCS: 74183; A9585

== ENCOUNTER 2025-10-20 08:44 | Outpatient (REF) | payer OTHER, SELFPAY ==
--- NOTE | ~2025-10-20 | MM_ITS ---
EXAMINATION: MM SCREENING DIGITAL BREAST TOMOSYNTHESIS, BILATERAL CLINICAL INFORMATION: Screening. Asymptomatic. COMPARISON: Mammography: Baseline. TECHNIQUE: Digital breast mammography with tomosynthesis is performed in both the craniocaudal and mediolateral oblique views along with computer-aided detection (CAD). FINDINGS: The breasts are heterogeneously dense, which may obscure small masses. There are no significant masses, abnormal calcifications, or other abnormalities. MM/MM tomosynthesis screening BI IMPRESSION: No mammographic evidence of malignancy. ASSESSMENT: BI-RADS Category 1: Negative RECOMMENDATION: Routine annual mammography screening. 1 year F/U This examination should not preclude the clinical evaluation of a suspicious palpable abnormality. This patient's information was entered into a reminder system with a target due date for their next mammogram. Electronically signed by: Kelsie Bob DO 10/21/2025 03:35 PM [email or web address]
== END 2025-10-20 08:45 | disposition home or self-care (01) ==
LOC: HO.MAMMO 08:44
PROVIDERS: PCP Internal Medicine; Visit Provider Internal Medicine
DX: Z12.31 Encounter for screening mammogram for malignant neoplasm of breast (principal)
CPT/HCPCS: 77063; 77067

== ENCOUNTER → 2025-10-20 09:00 | Outpatient (BNV) | payer OTHER, SELFPAY | PROVIDERS: PCP Internal Medicine; Visit Provider Internal Medicine | DX: Z12.31 Encounter for screening mammogram for malignant neoplasm of breast (principal) | CPT/HCPCS: 77063; 77067 ==